=== PATIENT | male | born 1955 | race Caucasian/White ===

== ENCOUNTER 2017-07-12 23:44 | Emergency (ER) | payer BC ==
[~2017-07-12] VITALS: Ht 5871 cm; Wt 61.3 kg
[2017-07-13] MEDS ORDERED: CYCL-1 PO (00:14)
== END 2017-07-13 00:23 | disposition home or self-care (01) ==
LOC: ER 23:45
DX: R25.3 Fasciculation (principal); G89.29 Other chronic pain
CPT/HCPCS: 99283